=== PATIENT | female | born 1975 | race Caucasian/White ===

== ENCOUNTER 2018-09-22 20:05 | Emergency (ER) | payer BC ==
[~2018-09-22] VITALS: Ht 160 cm; Wt 48.6 kg
[~2018-09-22 20:05] MED LIST: CIPROFLOXACN500 MG PO; NAPROSYN500 MG PO; NO; NO HOME MEDS; PAROXETINE20 MG PO; PHENERGAN SUPP RE; PRE-NATAL OR; TRAMADOL HCL50 MG PO
[2018-09-22] MEDS ORDERED: ELIMITE52 TOP (20:36)
[2018-09-22 20:45] VITALS: BP 116/61
== END 2018-09-22 20:45 | disposition home or self-care (01) | DRG 607 ==
LOC: ED 20:05
DX: B86 Scabies (principal); F17.200 Nicotine dependence, unspecified, uncomplicated